=== PATIENT | female | born 1990 | race Caucasian/White ===

== ENCOUNTER 2020-03-02 15:07 | Emergency (ER) | payer OTHER, SELFPAY ==
--- NOTE | ~2020-03-02 | XR_ITS ---
EXAMINATION: XR chest 2V EXAM DATE: 03/02/2020 15:46 INDICATION: cough fever x 1 week . TECHNIQUE: Frontal and lateral projections of the chest obtained and reviewed. Comparison is made to prior examination from 04/13/2019. FINDINGS: Patchy ill-defined right lower lobe airspace disease, most consistent with acute infectiou s process. Cardiomediastinal silhouette is normal. There is no pneumothorax suspected. There are no p leural effusions. There are no osseous abnormalities identified. IMPRESSION: Scattered ill-defined right lower lobe acute airspace disease. Could be bacterial or maya l pneumonia. Reviewed, dictated and finalized at location B. CRABBER IMPRESSION: Scattered ill-defined right lower lobe acute airspace disease. Coul d be bacterial or viral pneumonia.
[2020-03-02 15:15] VITALS: BP 115/70; PULSE 101; RESP 16; TEMP 38.7; O2SAT 96
--- NOTE | 2020-03-02 15:47 | ED.URI ---
HPI - URI/Sore Throat General Chief Complaint: Upper Respiratory Infection Stated Complaint: Cough Time Seen by Provider: 03/02/20 15:47 Source: patient and RN notes reviewed Mode of arrival: ambulatory Limitations: no limitations History of Present Illness HPI Narrative: 29 year old female who presents to [facility] care with complaints of cough,productive cough of yellow to green sputum, fevers, chills and sweats, some shortness of breath with activity for the past 3-4 days.She reports that 1 week ago she started with sinus congestion,clear nasal drainage and post nasal drainage. Patient states that she has had fever up to 103F with some shortness of breath and wheezing over the past 3 days She also reports some chest and back discomfort. Patient reports that she has had pneumonia several times in the past and she report tobacco abuse of 1/2 ppd of cigarettes for the past 10 years.Patient has even and nonlabored respirations with no accessory muscle use or tachypnea. MD elicited complaint: cough, nasal congestion and other (shortness of breath, ) Pertinent past history: pneumonia Onset (ago): week(s) Consistency: constant Severity: similar to previous episodes Description of mucous: yellow and green Able to tolerate fluids by mouth: Yes Exacerbating factors: exertion and deep breaths Associated symptoms: fever, rhinorrhea, nasal congestion, cough, shortness of breath and other Treatments prior to arrival: other (took some left over clindamycin antibiotic) Related Data Allergies Allergy/AdvReac Type Severity Reaction Status Date / Time No Known Allergies Allergy Verified 03/02/20 15:28 Review of Systems Review of Systems: Narrative: CONSTITUTIONAL:Positive for fever, chills, or sweats. EYES: Denies visual changes, redness, or discharge. ENT: Positive rhinorrhea, congestion, no sore throat, or otalgia. CARDIOVASCULAR: Denies chest pain, palpitations, or edema. RESPIRATORY: Positive cough, wheezing or dyspnea. GASTROINTESTINAL: Denies abdominal pain, nausea, vomiting, or diarrhea. GENITOURINARY: Denies dysuria or hematuria. SKIN: Denies rash or itching. MUSCULOSKELETAL: Reports back pain, no joint pain, or myalgia. NEUROLOGIC: Denies headache, numbness, or weakness. PSYCHIATRIC: Denies anxiety or depression. All systems reviewed & are unremarkable except as noted in HPI and below [facility] Past Medical History Medical History (Updated 03/05/20 @ 12:52 by Nina Che NP) Cough in adult Pneumonia Surgical History Surgical History (Updated 03/02/20 @ 16:02 by Nina Che NP) [place] teeth extracted Social History Social History (Updated 03/02/20 @ 16:02 by Nina Che NP) Smoking packs per day: 0.5 Smoking cigarettes per day: 10.0 Smoking status: Current every day smoker Alcohol intake: never Substance use: never Living arrangements: with family Gender identity (if verbalized by the patient): Female Comments At time of signature, agree with nursing past medical, surgical, social history. There is no relevant family history pertinent to the presenting complaint Exam Narrative: Exam Narrative: GENERAL: frail-appearing, well-nourished, and in no acute distress. HEAD: Normocephalic, atraumatic. EYES: PERRLA and EOMI. ENT: Nares red, clear rhinorrhea no epistaxis. Mucous membranes moist TM's normal with adequate light reflex, throat pink with no redness exudates or tonsil swelling noted. NECK: Supple.no lymphadenopathy CHEST: Rhonchi right lower lung quiñonez on auscultation. No respiratory distress.cough SAO2 96% on room air, reports some dyspnea with activity HEART: Regular rate and rhythm. No murmur heard. Normal peripheral pulses. ABDOMEN: Soft, nontender, nondistended, normal active bowel sounds. EXTREMITIES: Normal range of motion. No edema. SKIN: Warm, dry, no rash. NEURO: No focal deficits. Alert and oriented x3. Course Vital Signs Vital signs: Vital Signs Temperature 38.7 C H 11/0
== END 2020-03-02 16:10 | disposition home or self-care (01) ==
PROVIDERS: Emergency Provider Registered Nurse
DX: J18.1 Lobar pneumonia, unspecified organism (principal); Z20.828 Contact with and (suspected) exposure to other viral communicable diseases; F17.210 Nicotine dependence, cigarettes, uncomplicated
CPT/HCPCS: 71046; 99213; G0463

== ENCOUNTER 2021-04-10 09:53 | Emergency (ER) | payer OTHER, SELFPAY ==
--- NOTE | ~2021-04-10 | XR_ITS ---
EXAMINATION: XR chest 2V DATE: 04/10/2021 10:53 INDICATION: Cough and shortness of breath TECHNIQUE: PA and lateral views of the chest are obtained. COMPARISON: 03/29/2020 FINDINGS: The lungs are free of acute opacities. There is no pleural effusion or pneumothorax. The ca rdiomediastinal silhouette is normal. The visualized bones and soft tissues are unremarkable. IMPRESSION: 1. No acute cardiopulmonary abnormality. Reviewed, dictated and finalized at location A. SERVICE DELIVERY MANAGER
[2021-04-10 10:00] VITALS: BP 106/67; PULSE 90; RESP 18; TEMP 36.8; O2SAT 100
--- NOTE | 2021-04-10 10:49 | ED.URI ---
HPI - URI/Sore Throat General Chief Complaint: Upper Respiratory Infection Stated Complaint: cough rib pain headache Time Seen by Provider: 04/10/21 10:36 Source: patient and RN notes reviewed Mode of arrival: ambulatory Limitations: no limitations History of Present Illness HPI Narrative: Patient presents today with a 2-week history of productive cough, nasal congestion postnasal drip, headache, sore throat, body aches, fatigue. Recently she has developed rib pain and shortness of breath. At onset of symptoms she was taking some Claritin-D and Excedrin, but she has not taken anything for her symptoms over the past week. Denies history of asthma or COPD. She has been vaccinated against COVID-19, but not influenza this season. She smokes 1 pack/day. History of pneumonia. She has received the pneumonia vaccine. MD elicited complaint: cough Related Data Allergies Allergy/AdvReac Type Severity Reaction Status Date / Time No Known Allergies Allergy Verified 03/02/20 15:28 Review of Systems Review of Systems: CONSTITUTIONAL: Denies fever, chills, or sweats.+ Body aches, fatigue EYES: Denies visual changes, redness, or discharge. ENT: Denies rhinorrhea, or otalgia.+ Congestion, postnasal drip, sore throat CARDIOVASCULAR: Denies chest pain, palpitations, or edema. RESPIRATORY: + Cough, shortness of breath, rib pain GASTROINTESTINAL: Denies abdominal pain, nausea, vomiting, or diarrhea. GENITOURINARY: Denies dysuria or hematuria. SKIN: Denies rash, itching, or wounds. MUSCULOSKELETAL: Denies back pain, joint pain, or myalgia. NEUROLOGIC: Denies numbness, tingling, or weakness.+ Headache PSYCH: Denies depression or anxiety. [facility] Past Medical History Medical History Cough in adult Pneumonia Surgical History Surgical History [place] teeth extracted Social History Social History Smoking packs per day: 0.5 Smoking cigarettes per day: 10.0 Smoking status: Current every day smoker Alcohol intake: never Substance use: never Gender identity (if verbalized by the patient): Female Comments At time of signature, I have reviewed and agree with nursing past medical, surgical, social and family history unless otherwise noted. Please see nursing chart for further information. There is no relevant family history pertinent to the presenting complaint Exam Narrative: GENERAL: Mildly ill-appearing, well-nourished, and in no acute distress. HEAD: Normocephalic, atraumatic. EYES: EOMI. No redness or drainage. Conjunctivae normal. ENT: Mucous membranes pink and moist. Nares clear. No rhinorrhea. TMs normal bilaterally. Throat normal. Uvula midline. NECK: Normal AROM. Supple. No lymphadenopathy. CHEST: No respiratory distress. Crackles in the bilateral lower lobes. HEART: Regular rate and rhythm. No murmur appreciated. Normal peripheral pulses. EXTREMITIES: Normal range of motion. No edema. SKIN: Warm, dry, no rash. Capillary refill normal. Normal skin turgor. NEURO: No focal deficits. Alert and oriented x3. Gait steady. PSYCH: Normal affect. No signs of depression or anxiety. Course Vital Signs Vital signs: Vital Signs Temperature 98.3 F 04/10/21 10:00 Pulse Rate 90 04/10/21 10:00 Respiratory Rate 18 04/10/21 10:00 Blood Pressure 106/67 04/10/21 10:00 Pulse Oximetry 100 04/10/21 10:00 Temperature 98.3 F 04/10/21 10:00 Pulse Rate 90 04/10/21 10:00 Respiratory Rate 18 04/10/21 10:00 Blood Pressure 106/67 04/10/21 10:00 Pulse Oximetry 100 04/10/21 10:00 Reviewed MDM - URI/Sore Throat Differential Diagnosis Differential diagnosis: Likely upper respiratory infection, sinusitis, viral infection, bronchitis and other (Pneumonia) Imaging Data Radiologist's impression: ITS Impressions [place]
== END 2021-04-10 11:25 | disposition home or self-care (01) ==
PROVIDERS: Emergency Provider Nurse Practitioner
DX: J40 Bronchitis, not specified as acute or chronic (principal); J06.9 Acute upper respiratory infection, unspecified; F17.210 Nicotine dependence, cigarettes, uncomplicated
CPT/HCPCS: 71046; 99213; G0463

== ENCOUNTER 2021-11-16 08:06 | Emergency (ER) | payer OTHER, SELFPAY ==
--- NOTE | ~2021-11-16 | XR_ITS ---
EXAMINATION: XR chest 2V DATE: 11/16/2021 08:28 INDICATION: Cough. TECHNIQUE: Frontal and lateral views of the chest were obtained. COMPARISON: Chest 2 views 04/10/2021 FINDINGS: There is mild scarring at the lung apices. No pleural effusion or pneumothorax. The heart s ize is normal. IMPRESSION: 1. Stable mild scarring at the lung apices. Reviewed, dictated and finalized at location A.
[2021-11-16 08:12] VITALS: BP 102/72; PULSE 91; RESP 16; TEMP 37.6; O2SAT 99
--- NOTE | 2021-11-16 08:32 | ED.URI ---
HPI - URI/Sore Throat General Chief Complaint: Upper Respiratory Infection Stated Complaint: Cough/Headache Time Seen by Provider: 11/16/21 08:32 Source: patient Mode of arrival: ambulatory Limitations: no limitations History of Present Illness HPI Narrative: 31-year-old female presents with complaint of runny nose, nasal congestion, sore throat, fever, cough, headache since yesterday. No shortness of breath or chest pain. Reports pneumonia 9 times. Is here to see if she needs an antibiotic. Does not want any COVID testing done. Denies nausea vomiting diarrhea. No chest pain. All systems reviewed and negative except as noted above. Related Data Home Medications Medication Instructions Recorded Confirmed No Home Medications 11/16/21 11/16/21 Allergies Allergy/AdvReac Type Severity Reaction Status Date / Time No Known Allergies Allergy Verified 11/16/21 08:22 Review of Systems Review of Systems: CONSTITUTIONAL: Reports fever, chills, or sweats. EYES: Denies visual changes, redness, or discharge. ENT: Reports rhinorrhea, congestion, sore throat. Denies otalgia. CARDIOVASCULAR: Denies chest pain, palpitations, or edema. RESPIRATORY: Reports cough. Denies dyspnea. GASTROINTESTINAL: Denies abdominal pain, nausea, vomiting, or diarrhea. GENITOURINARY: Denies dysuria or hematuria. SKIN: Denies rash or itching. MUSCULOSKELETAL: Denies back pain, joint pain, or myalgia. NEUROLOGIC: Denies headache, numbness, or weakness. PSYCHIATRIC: Denies anxiety or depression. All other systems reviewed are negative, except as documented in HPI. [facility] Past Medical History Medical History Cough in adult Pneumonia Surgical History Surgical History [place] teeth extracted Social History Social History Smoking packs per day: 0.5 Smoking cigarettes per day: 10.0 Smoking status: Current every day smoker Alcohol intake: never Substance use: never Gender identity (if verbalized by the patient): Female Comments At time of signature, agree with nursing past medical, surgical, social and family history. There is no relevant family history pertinent to the presenting complaint. Exam Narrative: GENERAL: This is a well-nourished, well-developed patient, in no apparent distress. HEAD: normocephalic, atraumatic. EYES: PERRL. Sclera clear/white. Vision is grossly intact. EARS: External ears normal, auditory canals clear and without drainage, TMs normal without perforation. Hearing grossly intact. NOSE: External nose normal with clear nasal drainage. THROAT: Mucous membranes moist, posterior pharynx clear. NECK: Neck supple, non-tender without lymphadenopathy, masses or thyromegaly. CARDIOVASCULAR: Regular rate and rhythm without murmurs, gallops, or rubs. RESPIRATORY: Clear to auscultation. Breath sounds equal bilaterally. No wheezes, rales, or rhonchi. SKIN: warm, Dry, intact with no suspicious lesions or rash, good texture and turgor. NEURO: awake, alert, and oriented to person, place and time. There were no obvious focal neurologic abnormalities. EXTREMITIES: No joint tenderness, effusion, or edema noted. Course Course Level of Care: Express Care Visit Vital Signs Vital signs: Vital Signs Temperature 37.6 C H 11/16/21 08:12 Pulse Rate 91 11/16/21 08:12 Respiratory Rate 16 11/16/21 08:12 Blood Pressure 102/72 11/16/21 08:12 Pulse Oximetry 99 11/16/21 08:12 Oxygen Delivery Room Air 11/16/21 08:12 Temperature 37.6 C H 11/16/21 08:12 Pulse Rate 91 11/16/21 08:12 Respiratory Rate 16 11/16/21 08:12 Blood Pressure 102/72 11/16/21 08:12 Pulse Oximetry 99 11/16/21 08:12 Oxygen Delivery Room Air 11/16/21 08:12 Reviewed MDM - URI/Sore Throat MDM Narrative Medical decision making narrati
== END 2021-11-16 08:57 | disposition home or self-care (01) ==
PROVIDERS: Emergency Provider Nurse Practitioner Family
DX: J06.9 Acute upper respiratory infection, unspecified (principal); F17.210 Nicotine dependence, cigarettes, uncomplicated
CPT/HCPCS: 71046; 99213; G0463

== ENCOUNTER 2021-12-06 18:33 | Emergency (ER) | payer OTHER, SELFPAY ==
--- NOTE | ~2021-12-06 | XR_ITS ---
EXAMINATION: XR chest 2V Exam Date/Time: 12/06/2021 18:49 CDT HISTORY: PRODUCTIVE COUGH/WHEEZING X 3 DAYS. SMOKER. Comparison: None available. RESULT: Lines, tubes, and devices: None. Lungs and pleura: Irregular subsegmental bibasilar opacities with more generalized reticulonodular d ensities in the right lower lung. Cardiomediastinal silhouette: Stable. Other: No acute osseous or upper abdominal finding. IMPRESSION: Right lower lobe bronchopneumonia versus respiratory bronchiolitis. Reviewed, dictated and finalized at location K.
--- NOTE | 2021-12-06 18:35 | ED.URI ---
HPI - URI/Sore Throat General Chief Complaint: Upper Respiratory Infection Stated Complaint: Chest Pain Time Seen by Provider: 12/06/21 18:35 Source: patient Mode of arrival: ambulatory Limitations: no limitations History of Present Illness HPI Narrative: Ms. Hassan is a 31-year-old female patient presenting to the clinic today with complaints of cough, shortness of breath on exertion, and chest discomfort x 3 days. She also notes some chills and possible fever. History of recurrent pneumonia. Current smoker. Has been having green, yellow, and white phlegm. MD elicited complaint: sore throat and nasal congestion Related Data Allergies Allergy/AdvReac Type Severity Reaction Status Date / Time No Known Allergies Allergy Verified 12/06/21 18:43 Review of Systems Review of Systems: Pertinent positives per HPI. Patient denies any fever, chills, rash, headache, visual changes, dizziness, cough, shortness of breath, chest pain, palpitations, nausea, vomiting, diarrhea, constipation, abdominal pain, or any urinary issues. [facility] Past Medical History Medical History Cough in adult Pneumonia Surgical History Surgical History [place] teeth extracted Social History Social History Smoking packs per day: 0.5 Smoking cigarettes per day: 10.0 Smoking status: Current every day smoker Alcohol intake: never Substance use: never Gender identity (if verbalized by the patient): Female Comments At the time of my signature, I reviewed and agree with the nursing past medical, surgical, social, and family history. There is no relevant family history pertinent to the patient complaint. Exam Narrative: General: Well-developed, well nourished, in no apparent distress Head: Normocephalic, atraumatic Eyes: Pupils equally round and reactive to light bilaterally, EOM intact, sclera and conjunctive clear, no discharge, lids normal Ears: TMs intact and clear, ear canals clear, no drainage, grossly hearing normal. Nose: Nares patent, no discharge, no inflammation, no sinus tenderness. Mouth: Oral pharynx without lesions or masses, good dentition, MMM. Neck: Supple, trachea midline, no enlargement of anterior or posterior cervical nodes, no thyroid masses or goiter palpable. Cardio: Regular rate and rhythm, s1 and s2 normal, no murmur appreciated. Resp: Expiratory wheezing and rhonci throughout posteriorly, rales or rubs Course Course Emergency Course: Portions of this record may have been created with voice recognition software. Level of Care: Express Care Visit Vital Signs Vital signs: Vital Signs Temperature 36.9 C 12/06/21 18:36 Pulse Rate 91 12/06/21 18:36 Respiratory Rate 14 12/06/21 18:36 Blood Pressure 111/74 12/06/21 18:36 Pulse Oximetry 99 12/06/21 18:36 Oxygen Delivery Room Air 12/06/21 18:36 Temperature 36.9 C 12/06/21 18:45 Pulse Rate 91 12/06/21 18:45 Respiratory Rate 14 12/06/21 18:45 Blood Pressure 111/74 12/06/21 18:45 Pulse Oximetry 99 12/06/21 18:45 Oxygen Delivery Room Air 12/06/21 18:45 Vital signs reviewed MDM - URI/Sore Throat MDM Narrative Medical decision making narrative: At the time of visit patient is resting comfortable on the exam table. COVID testing was negative. Chest x-ray was completed and she has right lower lobe pneumonia versus bronchiolitis. I suspect the patient has bronchial pneumonia and will treat with a course of azithromycin, amoxicillin, albuterol inhaler, and some prednisone. Supportive measures were discussed with the patient and she voiced understanding of discharge instructions and agrees to treatment plan. Differential Diagnosis Differential diagnosis: Likely upper respiratory infection, sinusitis, viral infection, bronchitis, influen
[2021-12-06 18:36] VITALS: BP 111/74; PULSE 91; RESP 14; TEMP 36.9; O2SAT 99
[2021-12-06 18:45] VITALS: BP 111/74; PULSE 91; RESP 14; TEMP 36.9; O2SAT 99
== END 2021-12-06 19:15 | disposition home or self-care (01) ==
PROVIDERS: Emergency Provider Nurse Practitioner Family
DX: J18.1 Lobar pneumonia, unspecified organism (principal); Z20.822 Contact with and (suspected) exposure to COVID-19; F17.210 Nicotine dependence, cigarettes, uncomplicated
CPT/HCPCS: 71046; 87426; 99213; C9803; G0463

== ENCOUNTER 2022-12-27 15:48 | Emergency (ER) | payer OTHER, SELFPAY ==
[2022-12-27 15:55] VITALS: BP 107/65; PULSE 92; RESP 20; TEMP 37.9; O2SAT 100
--- NOTE | 2022-12-27 16:09 | ED.URI ---
HPI - URI/Sore Throat General Chief Complaint: Upper Respiratory Infection Stated Complaint: aches/fatigue/cough Time Seen by Provider: 12/27/22 16:10 Source: patient Mode of arrival: ambulatory Limitations: no limitations History of Present Illness HPI Narrative: 32-year-old female presents with complaint of cough for 1 month. Today she developed a low-grade fever pain to left mid back. Is concerned for pneumonia. Reports that she has had pneumonia proximally times. Patient is a current every day smoker. Not taking any [id number] medications to treat her symptoms. Denies shortness of breath at rest. All systems reviewed and negative except as noted above. Related Data Allergies Allergy/AdvReac Type Severity Reaction Status Date / Time No Known Allergies Allergy Verified 12/27/22 16:10 Review of Systems Review of Systems: CONSTITUTIONAL: Reports fever, fatigue. Denies chills, or sweats. EYES: Denies visual changes, redness, or discharge. ENT: Denies rhinorrhea, congestion, sore throat, or otalgia. CARDIOVASCULAR: Denies chest pain, palpitations, or edema. RESPIRATORY: Reports cough chest congestion and dyspnea with exertion. GASTROINTESTINAL: Denies abdominal pain, nausea, vomiting, or diarrhea. GENITOURINARY: Denies dysuria or hematuria. SKIN: Denies rash or itching. MUSCULOSKELETAL: Denies back pain, joint pain, or myalgia. NEUROLOGIC: Denies headache, numbness, or weakness. PSYCHIATRIC: Denies anxiety or depression. All other systems reviewed are negative, except as documented in HPI. [facility] Past Medical History Medical History Cough in adult Pneumonia Surgical History Surgical History [place] teeth extracted Social History Social History Smoking packs per day: 0.5 Smoking cigarettes per day: 10.0 Smoking status: Current every day smoker Alcohol intake: never Substance use: never Living arrangements: with family Gender identity (if verbalized by the patient): Female Comments At time of signature, agree with nursing past medical, surgical, social and family history. There is no relevant family history pertinent to the presenting complaint. Exam Narrative: GENERAL: This is a well-nourished, well-developed patient, in no apparent distress. HEAD: normocephalic, atraumatic. EYES: PERRL. Sclera clear/white. Vision is grossly intact. EARS: External ears normal, auditory canals clear and without drainage, TMs normal without perforation. Hearing grossly intact. NOSE: External nose normal with no obvious nasal discharge, nares without redness, no rhinorrhea. THROAT: Mucous membranes moist, posterior pharynx clear. NECK: Neck supple, non-tender without lymphadenopathy, masses or thyromegaly. CARDIOVASCULAR: Regular rate and rhythm without murmurs, gallops, or rubs. RESPIRATORY: Rhonchi throughout all lung quiñonez. No wheezes, rales. SKIN: warm, Dry, intact with no suspicious lesions or rash, good texture and turgor. NEURO: awake, alert, and oriented to person, place and time. There were no obvious focal neurologic abnormalities. EXTREMITIES: No joint tenderness, effusion, or edema noted. Course Course Level of Care: Express Care Visit Vital Signs Vital signs: Vital Signs Temperature 37.9 C H 12/27/22 15:55 Pulse Rate 92 12/27/22 15:55 Respiratory Rate 20 12/27/22 15:55 Blood Pressure 107/65 12/27/22 15:55 Pulse Oximetry 100 12/27/22 15:55 Oxygen Delivery Room Air 12/27/22 15:55 Temperature 37.9 C H 12/27/22 15:55 Pulse Rate 92 12/27/22 15:55 Respiratory Rate 20 12/27/22 15:55 Blood Pressure 107/65 12/27/22 15:55 Pulse Oximetry 100 12/27/22 15:55 Oxygen Delivery Room Air 12/27/22 15:55 Reviewed MDM - URI/Sore Throat MDM Narrative Medical decisio
== END 2022-12-27 16:18 | disposition home or self-care (01) ==
PROVIDERS: Emergency Provider Nurse Practitioner Family
DX: R05.1 Acute cough (principal); F17.210 Nicotine dependence, cigarettes, uncomplicated
CPT/HCPCS: 99213; G0463

== ENCOUNTER 2023-02-27 17:21 | Emergency (ER) | payer OTHER, SELFPAY ==
--- NOTE | ~2023-02-27 | XR_ITS ---
EXAMINATION: XR chest 2V 02/27/2023 18:01 INDICATION: Chest discomfort PROCEDURE: 2 view chest COMPARISON: Comparison to multiple prior studies sequentially, with oldest reviewed study dated 03/30. FINDINGS: The lungs are clear. The cardiomediastinal silhouette is within normal limits. There are no pleural effusions. There is no pneumothorax suspected. IMPRESSION: 1: NO ACUTE CARDIOPULMONARY DISEASE. Reviewed, dictated and finalized at location A.
[2023-02-27 17:26] VITALS: BP 121/65; PULSE 101; RESP 20; TEMP 38.6; O2SAT 100
--- NOTE | 2023-02-27 17:45 | ED.URI ---
HPI - URI/Sore Throat General Chief Complaint: Upper Respiratory Infection Stated Complaint: chest pain,throwing up,diarrhea,cough Source: patient and RN notes reviewed History of Present Illness HPI Narrative: 32 yo F presents to urgent care with multiple medical complaints. Pt states she has an intermittent BEAULIEU and vomited x1 this morning and 1x yesterday. Pt has had diarrhea today. Complains of lower abdominal cramping that she contributes to her possible near menses. Pt states she thinks she has PNA b/c of the lower chest pain that she has and SOB but also states the lower chest pain started when she was vomiting. Denies any known fevers at home. Denies any dysuria. Related Data Home Medications Medication Instructions Recorded Confirmed albuterol sulfate 90 mcg/actuation inhalation 02/27/23 aerosol inhaler Allergies Allergy/AdvReac Type Severity Reaction Status Date / Time No Known Allergies Allergy Verified 12/27/22 16:10 Review of Systems Review of Systems: Pertinent positives and pertinent negatives per HPI. [facility] Past Medical History Medical History Cough in adult Pneumonia Surgical History Surgical History [place] teeth extracted Social History Social History Smoking packs per day: 0.5 Smoking cigarettes per day: 10.0 Smoking status: Current every day smoker Alcohol intake: never Substance use: never Living arrangements: with family Gender identity (if verbalized by the patient): Female Comments At the time of my signature, I reviewed and agree with the nursing past medical, surgical, social, and family history. There is no relevant family history pertinent to the patient complaint. Exam Narrative: GENERAL: This is a well-nourished, well-developed patient, in no apparent distress. HEAD: normocephalic, atraumatic. EYES: Sclera clear/white. Vision is grossly intact. EARS: External ears normal, auditory canals clear and without drainage, TMs normal without perforation. Hearing grossly intact. NOSE: External nose normal with no obvious nasal discharge, nares without redness, no rhinorrhea. THROAT: Mucous membranes moist, posterior pharynx clear. NECK: Neck supple, non-tender without lymphadenopathy, masses or thyromegaly. CARDIOVASCULAR: Regular rate and rhythm without murmurs, gallops, or rubs. RESPIRATORY: Clear to auscultation. Breath sounds equal bilaterally. No wheezes, rales, or rhonchi. GASTROINTESTINAL: Abdomen soft, non-tender, nondistended. Bowel sounds are active. No hepato-splenomegaly, or palpable masses. No guarding. SKIN: warm, intact with no suspicious lesions or rash, good texture and turgor. NEURO: awake, alert, and oriented to person, place and time. There were no obvious focal neurologic abnormalities. EXTREMITIES: No clubbing, cyanosis, or edema. No joint tenderness, effusion, or edema noted. BACK: Nontender without deformity or crepitus. No flank tenderness. Course Course Level of Care: Express Care Visit Vital Signs Vital signs: Vital Signs Temperature 101.5 F H 02/27/23 17:26 Pulse Rate 101 H 02/27/23 17:26 Respiratory Rate 20 02/27/23 17:26 Blood Pressure 121/65 02/27/23 17:26 Pulse Oximetry 100 02/27/23 17:26 Oxygen Delivery Room Air 02/27/23 17:26 Temperature 101.5 F H 02/27/23 17:26 Pulse Rate 101 H 02/27/23 17:26 Respiratory Rate 20 02/27/23 17:26 Blood Pressure 121/65 02/27/23 17:26 Pulse Oximetry 100 02/27/23 17:26 Oxygen Delivery Room Air 02/27/23 17:26 Reviewed MDM - URI/Sore Throat MDM Narrative Medical decision making narrative: Viral illness may last between 7-21 days; antibiotics do not cure viral illness and are NOT recommended at this time. Also, recommend symptomatic treatment includes: rest, fluids,
== END 2023-02-27 18:24 | disposition home or self-care (01) ==
PROVIDERS: Emergency Provider Nurse Practitioner Family
DX: B34.9 Viral infection, unspecified (principal); F17.210 Nicotine dependence, cigarettes, uncomplicated
CPT/HCPCS: 71046; 99213; G0463

== ENCOUNTER 2024-05-09 10:29 | Emergency (ER) | payer OTHER, SELFPAY ==
--- NOTE | ~2024-05-09 | XR_ITS ---
CHEST RADIOGRAPH, PA AND LATERAL CLINICAL HISTORY: cough x1 wk, HX PNEUMONIA . COMPARISON: 02/27/2023 TECHNIQUE: PA and lateral views of the chest. FINDINGS The cardiomediastinal silhouette is unremarkable. The lungs are clear. Visualized osseous structures and soft tissues are unremarkable. IMPRESSION: No focal infiltrate or effusion. If clinical suspicion persists, cross-sectional imaging (noncontrast enhanced CT examination of the c hest) is suggested for further evaluation. Reviewed, dictated and finalized at location A. [facility] IMPRESSION: No focal infiltrate or effusion. If clinical suspicion persists, cross-sectional imaging (noncontrast enhanced C T examination of the chest) is suggested for further evaluation.
[2024-05-09 10:34] VITALS: BP 118/81; PULSE 92; RESP 16; TEMP 37.1; O2SAT 100
--- NOTE | 2024-05-09 10:55 | ED.URI ---
HPI - URI/Sore Throat General Chief Complaint: Upper Respiratory Infection Stated Complaint: Rib Pain/Back Pain/Cough Time Seen by Provider: 05/09/24 10:38 Source: patient and RN notes reviewed Mode of arrival: ambulatory Limitations: no limitations History of Present Illness HPI Narrative: Patient presents today complaining of a one-week history productive cough, chest congestion, headache, nasal congestion, rhinorrhea, occasional low fever with occasional shortness of breath. She also reports some right posterior rib pain since yesterday. She has been taking some Excedrin for headache with some mild relief. History of pneumonia. Smokes 1 pack per day. Related Data Home Medications ?Medication ?Instructions ?Recorded ?Confirmed ?Last Taken ?Type albuterol sulfate 90 mcg/actuation inhalation 02/27/23 Unknown History aerosol inhaler Allergies Allergy/AdvReac Type Severity Reaction Status Date / Time No Known Allergies Allergy Verified 05/09/24 10:38 Review of Systems Review of Systems: CONSTITUTIONAL: Denies body aches, chills, or sweats.+ fever EYES: Denies visual changes, redness, or discharge. ENT: Denies sore throat, or otalgia.+ congestion, rhinorrhea CARDIOVASCULAR: Denies chest pain, palpitations, or edema. RESPIRATORY: + cough, chest congestion, occasional shortness of breath, rib pain GASTROINTESTINAL: Denies abdominal pain, nausea, vomiting, or diarrhea. GENITOURINARY: Denies dysuria or hematuria. SKIN: Denies rash, itching, or wounds. MUSCULOSKELETAL: Denies back pain, joint pain, or myalgia. NEUROLOGIC: Denies numbness, tingling, or weakness.+ headache PSYCH: Denies depression or anxiety. PMF Past Medical History Medical History (Reviewed 05/09/24 @ 10:56 by Catherine Trent, [facility], ) Cough in adult Pneumonia Surgical History Surgical History (Reviewed 05/09/24 @ 10:56 by Catherine Trent, [facility], ) [place] teeth extracted Social History Social History (Updated 05/09/24 @ 10:56 by Catherine Trent, [facility], ) Smoking packs per day: 1 Smoking cigarettes per day: 20.0 Smoking status: Current every day smoker Alcohol intake: never Substance use: never Living arrangements: with family Gender identity (if verbalized by the patient): Female Comments At time of signature, I have reviewed and agree with nursing past medical, surgical, social and family history unless otherwise noted. Please see nursing chart for further information. There is no relevant family history pertinent to the presenting complaint Exam Narrative: GENERAL: Mildly ill-appearing, well-nourished, and in no acute distress. HEAD: Normocephalic, atraumatic. EYES: EOMI. No redness or drainage. Conjunctivae normal. ENT: Mucous membranes pink and moist. Nares congested. No rhinorrhea. TMs normal bilaterally. Throat normal. Uvula midline. NECK: Normal AROM. Supple. No lymphadenopathy. CHEST: No respiratory distress. Inspiratory and expiratory wheezing throughout. Rhonchi in the right lower lobe. HEART: Regular rate and rhythm. No murmur appreciated. EXTREMITIES: Normal range of motion. No edema. SKIN: Warm, dry, no rash. Capillary refill normal. Normal skin turgor. NEURO: No focal deficits. Alert and oriented x3. Gait steady. PSYCH: Normal affect. No signs of depression or anxiety. Course Course Level of Care: Express Care Visit Vital Signs Vital signs: Vital Signs Temperature 98.7 F 05/09/24 10:34 Pulse Rate 92 05/09/24 10:34 Respiratory Rate 16 05/09/24 10:34 Blood Pressure 118/81 05/09/24 10:34 Pulse Oximetry 100 05/09/24 10:34 Oxygen Delivery Room Air 05/09/24 10:34 Temperature 98.7 F 05/09/24 10:34 Pulse Rate 92 05/09/24 10:34 Respiratory Rate 16 05/09/24 10:34 Blood Pressure 118/81 05/09/24 10:34 Pulse Oximetry 100 05/09/24 10:34 Oxygen Delivery Room Air 05/09/24 10:34 Reviewed MDM - URI/Sore Throat MDM Narrative Medical decision making narrative: Chest x-ray negative. Patient will be treated for bronchitis with prednisone and an albuterol inhaler. She declines antitussive. Symptoms likely viral in etiology. Discussed [id number] medication use and duration of illness. Anticipatory guidance given. Differential Diagnosis Differential diagnosis: Likely upper respiratory infection, viral infection, bronchitis and other (Pneumonia) Imaging Data Radiologist's impression: ITS Impressions Chest X-Ray 05/09/24 10:45 IMPRESSION: No focal infiltrate or effusion. If clinical suspicion persists, cross-sectional imaging (noncontrast enhanced CT examination of the chest) is suggested for further evaluation. Critical Care Time Critical Care Time Critical Care Time: No Discharge Plan Discharge Clinical Impression: Bronchitis Upper respiratory infection Qualifiers: URI type: unspecified URI Qualified Code(s): J06.9 - Acute upper respiratory infection, unspecified Patient Disposition: Home, Self-Care Condition: Stable Instructions: Acute Bronchitis (ED) Additional Instructions: Your chest x-ray is negative for pneumonia. Please start the prednisone and the albuterol inhaler as directed. Start Mucinex to help break up chest congestion. Taking anti-inflammatories such as Aleve or ibuprofen for your rib discomfort. Follow-up with your PCP next week if symptoms are not improving. Your blood pressure was elevated above 120/80 today at Urgent Care. This puts you above the threshold for follow up. Please schedule a followup visit with your personal physician as soon as possible, for further evaluation and treatment. Even blood pressure exceeding 120/80 may indicate pre-hypertension. Patient Language: Greenlandic Prescriptions: New prednisone 50 mg tablet 50 mg PO DAILY 5 Days Qty: 5 0RF albuterol sulfate 90 mcg/actuation HFA aerosol inhaler 2 inh inhalation Q4-6H PRN (Reason: shortness of breath or wheezing) Qty: 8.5 0RF No Action albuterol sulfate 90 mcg/actuation HFA aerosol inhaler INHALATION (DME) Aerochamber Plus Z Stat Spacer See Rx Instructions .Route Qty: 1 0RF Rx Instructions: As directed Follow-up/Referrals: PHYSICIAN,TRAINING REPRESENTATIVE [Primary Care Provider] - Time of Disposition: 11:00
== END 2024-05-09 11:03 | disposition home or self-care (01) ==
PROVIDERS: Emergency Provider Nurse Practitioner
DX: J40 Bronchitis, not specified as acute or chronic (principal); J06.9 Acute upper respiratory infection, unspecified; F17.210 Nicotine dependence, cigarettes, uncomplicated
CPT/HCPCS: 71046; 99213; G0463

== ENCOUNTER 2024-07-07 09:10 | Emergency (ER) | payer OTHER, SELFPAY ==
[2024-07-07 09:34] VITALS: BP 116/78; PULSE 96; RESP 16; TEMP 36.9; O2SAT 100
--- OUTSIDE RECORDS SUMMARY | 2024-07-07 10:10 | XMS_ITS | Clinical Summary ---
Author Organization [facility] Address [address] [place] [address] Phone Care Team Providers Care Medical Staff Coordinator Name Role Phone Provider, None Primary Care Provider Unavailabl e Allergies No known active allergies Medications albuterol 108 (90 Base) MCG/ACT Aerosol Solution take 2 Puffs by inhalation every 6 hours as needed for Cough. 1 Inhaler 9 Active Social History Tobacco Use Types Packs/Day Years Used Date Smoking Tobacco: Every Day Cigarettes Smokeless Tobacco: Never Alcohol Use Standard Drinks/Week Comments Not Currently 0 (1 standard drink = 0.6 oz pur e alcohol) Comments No Sex and Gender Information Value Date Recorded Sex Assigned at Not on file Legal Sex Female 8:42 PM CDT Gender Identity Not on file Sexual Orientation Not on file Last Filed Vital Signs Vital Sign Reading Time Taken Comments Blood Pressure 99/59 08/07/2021 2:03 PM CDT Pulse 92 08/07/2021 2:03 PM CDT Temperature 38.8 C (101.9 F) 08/07/2021 11:53 AM CDT Respiratory Rate 16 08/07/2021 11:53 AM CDT Oxygen Saturation 94% 08/07/2021 2:03 PM CDT Inhaled Oxygen Concentration - - Weight 47.6 kg (105 lb) 08/07/2021 11:53 AM CDT Height 160 cm (5' 3 ) 08/07/2021 11:53 AM CDT Body Mass Index 18.6 08/07/2021 11:53 AM CDT Plan of Treatment Health Maintenance Due Date Last Done Comments Hepatitis C Virus (HCV) Screening 1992 TdaP Immunization 1992 Hepatitis B Immunization (1 of 3 - 19+ 3-dose series) 2011 Pap Smear 2013 Cervical Cancer Screening (CCS) 2022 HPV/Cotest 2022 Influenza Immunization (#1) 2023 SARS-COV-2 Immunization (1 - 2023-25 season) 2023 Respiratory Syncytial Virus (RSV) Immunization (Adult) (1 - 1-dose 75+ series) 2067 Pneumococcal Immunization Combined Aged Out 2019 No longer eligible based on patient's age to complete this topic Meningococcal Immunization (ACWY) Aged Out No longer eligible based on patient's age to complete this topic Rotavirus Immunization Aged Out No lo nger eligible based on patient's age to complete this topic Insurance [facility] Care Teams Medical Staff Coordinator Relationship Specialty Start Date End Date Provider, None [place] PCP - General 09/16/18
--- OUTSIDE RECORDS SUMMARY | 2024-07-07 10:10 | XMS_ITS | Encounter Summary ---
Author Organization [facility] Healthcare Address [address] [place] [address] Care Team Providers Care Preventive Maintenance Coordinator Name Role Phone Steve Plascencia MD Primary Care Provider [phone] Encounter Details Date Type Department Care Team (Late st Contact Info) Description 09/20/2022 Documentation [facility] Information Management [address] [place] [id number] Shanon Cornell RN Social History Tobacco Use Types Packs/Day Years Used Date Smoking Tobacco: Every Day Cigarettes 0.5 10 Smokeless Tobacco: Never Comments:1 PPD Alcohol Use Standard Drinks/Week Comments Not Currently 0 (1 standard drink = 0.6 oz pur e alcohol) Humiliation, Afraid, Rape, and Kick questionnair e Answer Date Recorded Within the last year, have y ou been afraid of your partner or ex-partner? No 01/17/2022 Within the last year, have y ou been humiliated or emotionally abused in other ways by your partner or ex-partner? No Within the last year, have y ou been kicked, hit, slapped, or otherwise physically hurt by your partner or ex-partner? No 01/17/2022 Within the last year, have y ou been raped or forced to have any kind of sexual activity by your partner or ex-partner? No 01/17/2022 Social Connection and Isolat ion Panel [NHANES] Answer Date Recorded In a typical week, how many times do you talk on the phone with family, friends, or neighbors? More than three times a week 08/09/2022 How often do you get togethe r with friends or relatives? More than three times a week 08/09/2022 How often do you attend chur ch or christianity services? Never 08/09/2022 Do you belong to any clubs o r organizations such as mandaen groups, unions, fraternal or athletic groups, or school groups? No 08/09/2022 How often do you attend meet ings of the clubs or organizations you belong to? Never 08/09/2022 Are you , , di vorced, , never , or living with a partner? 08/09/2022 AUDIT-C Answer Date Recorded Q1: How often do you have a drink containing alcohol? Never 08/09/2022 Q2: How many drinks containi ng alcohol do you have on a typical day when you are drinking? Patient does not drink Q3: How often do you have si x or more drinks on one occasion? Never 08/09/2022 Overall Financial Resource Strain (CARDIA) Answe r Date Recorded How hard is it for you to pa y for the very basics like food, housing, medical care, and heating? Not hard at all 08/09/2022 PHQ-2 Answer Date Recorded PHQ-2 Total Score (If total score is 3 or more points, staff should administer the PHQ-9) 0 08/09/2022 [facility] - Occupational Stress Questionnaire Answer Date Recorded Do you feel stress - tense, restless, nervous, or anxious, or unable to sleep at night because your mind is troubled all the time - these days? Not at all 08/09/2022 Exercise Vital Sign Answer Date Recorde d On average, how many days pe r week do you engage in moderate to strenuous exercise (like a brisk walk)? 3 days 08/09/2022 On average, how many minutes do you engage in exercise at this level? 30 min 08/09/2022 Hunger Vital Sign Answer Date Recorded Within the past 12 months, y ou worried that your food would run out before you got the money to buy more. Never true 08/10/19 23 Within the past 12 months, t he food you bought just didn't last and you didn't have money to get more. Never true 08/09/2022 PRAPARE - Transportation Answer Date Re corded In the past 12 months, has l ack of transportation kept you from medical appointments or from getting medications? No 07/29 In the past 12 months, has l ack of transportation kept you from meetings, work, or from getting things needed for daily living? No 08/09/2022 Housing Stability Vital Sign Answer Bharat e Recorded In the last 12 months, was t here a time when you were not able to pay the mortgage or rent on time? No 08/09/2022 In the last 12 months, how many places have you lived? 1 08/09/2022 In the last 12 months, was t here a time when you did not have a steady place to sleep or slept in a senior care (including now)? No 08/09/2022 [place] Depression Scale Answer Date Recorded [place] Depression Scale Total 8 05/30/2022 The thought of harming myself has occurred to me . Never 05/30/2022 Personal Safety Answer Date Recorded Have you ever been in or are you currently in a harmful physical or emotional relationship or is someone making you feel afraid or unsafe? 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
--- OUTSIDE RECORDS SUMMARY | 2024-07-07 10:10 | XMS_ITS | Clinical Summary ---
Author Organization [facility] [facility] lt Address [address] [place] [address] Care Team Providers Care Sr. Vendor Management Associate Name Role Phone Steve Plascencia MD Primary Care Provider [phone] Allergies No known active allergies Medications ibuprofen (ADVIL,MOTRIN) 600 mg tabletIndication s:Cramps Take 1 tablet (600 mg total) by mouth every 6 (six) hours as needed for pain 20 tablet 08/10/2022 Active Active Problems Problem Noted Date Diagnosed Date 38 weeks gestation of 08/09/2022 -induced glucose intolerance 06/16/2022 Overview (06/16/2022): 06/16/22- GTT= 90, 142, 102, 102 Normal , incidental 01/17/2022 Marijuana smoker 01/17/2022 Assessment & Plan (01/17/2022 4:06 PM CDT): The patient was instructed to stop smoking marijuana as it is bad for the baby's brain development. Moderate tobacco use disorder 03/24/2020 Assessment & Plan (01/17/2022 4:02 PM CDT): The patient was encouraged to stop smoking. Techniques for smoking cessation were discussed to the patient's level of interest. Assessment & Plan (03/24/2020 3:04 PM CEMENT CRUSHER OPERATOR): Not well controlled, patient is not ready to quit yet Discussed with patient various strategies for quitting as well as medical options Patient is not interested in starting any therapy today, will continue to address at future date Smoking likely contributes to recurrent pneumonia Body mass index (BMI) less than 19 03/24/2020 Assessment & Plan (03/24/2020 3:04 PM CEMENT CRUSHER OPERATOR): Stable, no weight loss, no concern for eating disorder Resolved Problems Problem Noted Date Diagnosed Date Resolved Date H/O recurrent pneumonia 03/24/202007/29 Assessment & Plan (03/24/2020 3:04 PM CEMENT CRUSHER OPERATOR): Patient reports 6 episodes of pneumonia in past 2 years, confirmed by x-ray and treatment antibiotics Will give pneumonia vaccine today, continue to evaluate Request records from outside sources, patient has had recent CT of chest as well as multiple chest x-rays Will also check routine labs including CBC for possible immune deficiency Given history of smoking, may have mild COPD increased risk of infection due to tobacco use disorder Immunizations Immunization Administration Dates Next Due Influenza, Unspecified 03/24/2020(Deferr ed: Patient Refused),04/30/2019(Deferred: Patient Refused),04/30/2018(Deferred: Patient Refused) Pneumococcal Polysaccharide PPV23 03/24/2020 Surgical History Surgery Date Site/Laterality Comments OTHER SURGICAL HISTORY No pertinent surgical hx NO PAST SURGERIES Medical History Medical History Date Comments No pertinent past medical history Pneumonia H/O recurrent pneumonia 03/24/2020 Family History Medical History Relation Name Comments Cancer Father's Sister Throat cancer Maternal Grandfather Emphysema Maternal Grandmother had can cer also Testicular cancer Mother's Brother Colon cancer Neg Hx no colon, breas t or 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 Never 08/09/2022 Do you belong to [...] staff should administer the PHQ-9) 0 08/09/2022 [facility] - Occupational Stress [...] place to sleep or slept in a residential (including now)? No 08/09/2022 [place] Depression Scale Answer Date Recorded [place] Depression Scale Total 8 05/30/2022 The thought of harming myself has occurred to me . Never 05/30/2022 Personal Safety Answer Date Recorded Getting School Help Needed Not on file 08/09 Comments No Sex and Gender Information Value Date Recorded Sex Assigned at Not on file Legal Sex Female 2:29 PM CEMENT CRUSHER OPERATOR Gender Identity Not on file Sexual Orientation Not on file Obstetrics History Para Term AB IAB SAB Ectopic Multiple Livin g Live Births 2 2 2 0 2 2 Date Outcome GA Total Labor Labor/2nd/3rd Weight Sex Type Anes PTL Mahi A1 A5 Name Clin 2017 Term 39w 0d 3.147 kg (6 lb 15 oz) F Vag-S pont None Livin g Complications:None 2022 Term 38w 1d 3h 08m 2h 16m/0h 48m/0h 04m 3.157 kg (6 lb 15.4 oz) M Vag-S pont Epidur al N Livin g 9 9 JACKELYN ODONNELLJasper MARTINEZ Humberto Hunt MD Complications:None Delivery Location:[facility] ([facility]) Last Filed Vital Signs Vital Sign Reading Time Taken Comments Blood Pressure 121/81 08/10/2022 3:00 PM CDT Pulse 80 08/10/2022 3:00 PM CDT Temperature 36.6 C (97.9 F) 08/10/2022 3:00 PM CDT Respiratory Rate 16 08/10/2022 3:00 PM CDT Oxygen Saturation 97% 08/09/2022 4:05 PM CDT Inhaled Oxygen Concentration - - Weight 68.9 kg (152 lb) 08/09/2022 5:30 AM CDT Height 165.1 cm (5' 5 ) 08/09/2022 5:30 AM CDT Body Mass Index 25.29 08/09/2022 5:30 AM CDT Plan of Treatment Health Maintenance Due Date Last Done Comments DTaP/Tdap/Td Vaccine (1 - Tdap) 2003 Varicella Vaccines (1 of 2 - 13+ 2-dose series) 2005 Hepatitis B Screening 2010 Regular Well Visit/Exam 18-64 2010 Pneumococcal vaccine <65 (2 of 2 - PCV) 03/24/2021 03/24/2020 Cervical Cancer Screening 01/17/2023 01/17/2022 Depression Screening 08/10/2023 08/09/2022, 08/09/2022, 03/24/2020 Hepatitis C Screening Completed 02/10/2022 HPV Vaccines Aged Out No longer eligi ble based on patient's age to complete this topic Influenza Vaccine Discontinued Procedures Procedure Name Priority Date/Time Associated Diagnosis Comments HEPATITIS C ANTIBODY Routine 02/10/2022 8:25 AM CDT Normal , incidental PAP WITH REFLEX TO HIGH RISK HPV Routine 01/17/2022 4:28 PM CDT Normal , incidental from Last 3 Months or Most Recently Relevant to Health Maintenance Results * Hepatitis C antibody (02/10/2022 8:25 AM CDT) Hep C Ab Nonreactive Nonreactive REECE AKERS (EDWAR) Comment: Interpretive Data Nonreactive: Antibodies to HCV not detected. Does NOT exclude the possibility of recent exposure to HCV. Equivocal: Equivocal for HCV antibodies. Supplemental molecular testing will be automatically performed to determine infection status in accordance with current CDC screening recommendations. Reactive: Positive for HCV antibodies. This may represent current or past HCV infection. Supplemental molecular testing will be automatically performed to determine current infection status in accordance with current CDC screening recommendations. Interpretive data was last revised on 2019. Testing performed by: [facility], [address] [place] [address]., [id number] Blood 02/10/2022 8:25 AM CDT 02/10/2022 2:10 PM CDT Shilpa Calhoun MD LAB MICROBIOLOGY - GENERAL ORDERABLES Final Result EMILEESMITH AKERS (BELVA) 1 [facility] Department [place] [address] * Pap with reflex to High Risk HPV (01/17/2022 4:28 PM CDT) CLINICAL INFORMATION: Tiffanie White Comment: LMP Tiffanie White Comment:11/15/2021 Previous Pap Tiffanie White Comment:NONE GIVEN Prev. Bx Tiffanie White Comment:NONE GIVEN SOURCE: Tiffanie White Comment:Cervix, Endocervix Pap, specimen adequacy Tiffanie White Comment: Satisfactory for evaluation. Endocervical/transformation zone component present. Partially obscuring inflammation HPV interp Tiffanie White Comment:Negative for intraep ithelial lesion or malignancy. Infection: Tiffanie White Comment: Shift in vaginal hansa suggestive of bacterial vaginosis. COMMENTS Tiffanie White Comment: This Pap test has been evaluated with computer assisted technology. Blasting Miner Madan Mayfield Comment: ABC, CT(ASCP) CT screening location: [place] [address] Administration YESICA [place] [id number] Comment JinniAlden White Comment: EXPLANATORY NOTE: The Pap is a screening test for cervical cancer. It is not a diagnostic test and is subject to false negative and false positive results. It is most reliable when a satisfactory sample, regularly obtained, is submitted with relevant clinical findings and history, and when the Pap result is evaluated along with historic and current clinical information. Thin prep 01/17/2022 4:28 PM CDT 01/18/2022 4:00 AM CDT Shilpa Calhoun MD LAB CYTOLOGY ORDERA BLES Final Result [facility] [address] Administration YESICA Zayas [phone] from Last 3 Months or Most Recently Relevant to Health Maintenance [facility] AETNA BETTER [facility] Advance Directives For more information, please contact: [phone] * Full Code (Latest Code Status on File) Date Activated Date Inactivated Comments 08/09/2022 4:36 PM 08/10/2022 10:03 PM * Full Code Date Activated Date Inactivated Comments 08/09/2022 5:29 AM 08/09/2022 4:36 PM Full CPR in case of cardiopulmonary arrest Care Teams Sr. Vendor Management Associate Relationship Specialty Start Date End Date [place] [address] PCP - General Family Medicine 03/24/20
--- OUTSIDE RECORDS SUMMARY | 2024-07-07 10:10 | XMS_ITS | Referral Summary ---
Author Organization [facility] [place] [address] [facility] lt Address [address] [place] [address] Care Team Providers Care Cath Lab Technologist Name Role Phone Steve Plascencia MD Primary Care Provider [phone] Allergies No known active allergies Medications ibuprofen [...] interest. Assessment & Plan (03/24/2020 3:04 PM DIRECTOR AGENCY & STRATEGIC PARTNERSHIPS): Not well controlled, patient is not ready to quit yet Discussed with patient various strategies for quitting as well as medical options Patient is not interested in starting any therapy today, will continue to address at future date Smoking likely contributes to recurrent pneumonia Body mass index (BMI) less than 19 03/24/2020 Assessment & Plan (03/24/2020 3:04 PM DIRECTOR AGENCY & STRATEGIC PARTNERSHIPS): Stable, no weight loss, no concern for eating disorder Resolved Problems Problem Noted Date Diagnosed Date Resolved Date H/O recurrent pneumonia 03/24/202007/29 Assessment & Plan (03/24/2020 3:04 PM DIRECTOR AGENCY & STRATEGIC PARTNERSHIPS): Patient reports 6 episodes of pneumonia in [...] Refused),04/30/2018(Deferred: Patient Refused) Pneumococcal Polysaccharide PPV23 03/24/2020 Social History Tobacco Use Types Packs/Day Years [...] often do you attend chur ch or sikhism services? Never 08/09/2022 Do you belong to any clubs o r organizations such as shinto groups, unions, fraternal or athletic groups, or [...] staff should administer the PHQ-9) 0 [facility]20[facility] Answer Date [...] place to sleep or slept in a detention (including now)? No 08/09/2022 [place] Depression Scale Answer Date Recorded [place] Depression Scale Total 8 05/30/2022 The thought of harming myself has occurred to me . Never 05/30/2022 Personal Safety Answer Date Recorded Getting School Help Needed Not on file 08/09 Comments No Sex and Gender Information Value Date Recorded Sex Assigned at Not on file Legal Sex Female 2:29 PM DIRECTOR AGENCY & STRATEGIC PARTNERSHIPS Gender Identity Not on file Sexual Orientation [...] 08/09/2022 5:30 AM CDT Plan of Treatment Not on file Procedures Procedure Name Priority Date/Time Associated Diagnosis Comments HEPATITIS C ANTIBODY Routine 02/10/2022 8:25 AM CDT Normal , incidental PAP WITH REFLEX TO HIGH RISK HPV Routine 01/17/2022 4:28 PM CDT Normal , incidental from Last 3 Months or Most Recently Relevant to Health Maintenance Results * Hepatitis C antibody (02/10/2022 8:25 AM CDT) Hep C Ab Nonreactive Nonreactive REECE AKERS (SHELBY) Comment: Interpretive Data Nonreactive: Antibodies to HCV [...] last revised on 2019. Testing performed by: [facility], [address] [place] [address]., [address] Blood 02/10/2022 8:25 AM CDT 02/10/2022 2:10 PM CDT Shilpa Calhoun MD LAB MICROBIOLOGY - GENERAL ORDERABLES Final Result REECE DELPHINE ([place]WAR) 1 [facility] Department [place] [address] * Pap with reflex to High Risk [...] has been evaluated with computer assisted technology. Castables Worker Madan Mayfield Comment: ABC, CT(ASCP) CT screening location: [place] [address] Administration YESICA [place] [id number] Comment Tiffanie White Comment: EXPLANATORY NOTE: The Pap is [...] 4:28 PM CDT 01/18/2022 4:00 AM CDT us Shilpa Calhoun MD LAB CYTOLOGY ORDERA BLES Final Result [facility] [address] Administration YESICA Zayas [phone] from Last 3 Months or Most Recently Relevant to Health Maintenance Insurance [facility] Advance Directives For more information, please contact: [phone] * Full Code (Latest Code Status on File) Date Activated Date Inactivated Comments 08/09/2022 4:36 PM 08/10/2022 10:03 PM * Full Code Date Activated Date Inactivated Comments 08/09/2022 5:29 AM 08/09/2022 4:36 PM Full CPR in case of cardiopulmonary arrest Care Teams Cath Lab Technologist Relationship Specialty Start Date End Date Steve Plascencia MD [address] [place] [address] PCP - General Family Medicine 03/24/20
--- NOTE | 2024-07-07 10:40 | ED.FEMALEGU ---
HPI - Female Genitourinary General Chief complaint: Urogenital-Female Stated complaint: Poss UTI Time Seen by Provider: 07/07/24 10:40 Source: patient, family, RN notes reviewed and old records reviewed Mode of arrival: ambulatory Limitations: no limitations History of Present Illness HPI Narrative: 34 year old female who presents to [facility] care with complaints of 1 week duration painful urination, urgency and frequency. Patient reports that she has not taken any AZO for her symptoms or any OTC medications . Patient reports some pelvic discomfort at times which is sharp rates pain at a 4/10. Patient has not taken any OTC medications for her symptoms. Patient reports no concern for STD exposure or any fevers, chills or sweats. MD elicited complaint: dysuria Pertinent past history: other (past UTI) Onset (ago): week(s) (1) Location of symptoms: pelvis Severity: moderate Severity scale (1-10): 4 Quality of pain: sharp Vaginal discharge: none Vaginal bleeding: none Urinary symptoms: Dysuria, Urgency and Frequency Treatment prior to arrival: none Related Data Allergies Allergy/AdvReac Type Severity Reaction Status Date / Time No Known Allergies Allergy Verified 07/07/24 09:56 Review of Systems Review of Systems: CONSTITUTIONAL: Denies fever, chills, or sweats. CARDIOVASCULAR: Denies chest pain, palpitations, or edema. RESPIRATORY: Denies cough or dyspnea. GASTROINTESTINAL: Denies abdominal pain, nausea, vomiting, or diarrhea, reports some pelvic discomfort sharp at times GENITOURINARY: Reports dysuria, frequency, urgency. Denies flank pain or hematuria. SKIN: Denies rash or itching. MUSCULOSKELETAL: Denies back pain or myalgia. Denies CVA tenderness NEUROLOGIC: Denies headache All systems reviewed & are unremarkable except as noted in HPI and below [facility] Past Medical History Medical History (Updated 07/09/24 @ 11:10 by Nina Che NP) Urinary tract infection Bronchitis Cough in adult Pneumonia Surgical History Surgical History [place] teeth extracted Social History Social History Smoking packs per day: 1 Smoking cigarettes per day: 20.0 Smoking status: Current every day smoker Alcohol intake: never Substance use: never Living arrangements: with family Gender identity (if verbalized by the patient): Female Comments At time of signature, agree with nursing past medical, surgical, social and family history. There is no relevant family history pertinent to the presenting complaint Exam Narrative: GENERAL: Well-appearing, well-nourished, and in no acute distress. HEAD: Normocephalic, atraumatic. NECK: Supple. no lymphadenopathy CHEST: Clear to auscultation. No respiratory distress. HEART: Regular rate and rhythm. No murmur heard. Normal peripheral pulses. ABDOMEN: Soft, nontender to palpation, reports some intermittent pelvic pain, nondistended, normal active bowel sounds. No CVA tenderness Positive for urinary burning, frequency and urgency EXTREMITIES: Normal range of motion. No edema. SKIN: Warm, dry, no rash. NEURO: No focal deficits. Alert and oriented x3. Course Course Emergency Course: Patient is aware of diagnosis, understands and agrees to treatment plan.? Anticipatory guidance given.? Patient agrees to follow-up as directed and is aware of reasons to seek care at the emergency department. Portions of this record may have been created with voice recognition software Level of Care: Express Care Visit Vital Signs Vital signs: Vital Signs Temperature 36.9 C 07/07/24 09:34 Pulse Rate 96 07/07/24 09:34 Respiratory Rate 16 07/07/24 09:34 Blood Pressure 116/78 07/07/24 09:34 Pulse Oximetry 100 07/07/24 09:34 Oxygen Delivery Room Air 07/07/24 09:34 Temperature 36.9 C 07/07/24 09:34 Pulse Rate 96 07/07/24 09:34 Respiratory Rate 16 07/07/24 09:34 Blood Pressure 116/78 07/07/24 09:34 Pulse Oximetry 100 07/07/24 09:34 Oxygen Delivery Room Air 07/07/24 09:34 MDM - Female Genitourinary MDM Narrative Medical decision making narrative: Exam findings and UA show no acute concerns or changes; patient is non-toxic appearing and is in no distress.? Patient is appropriate for outpatient treatment and follow-up. Differential Diagnosis Differential diagnosis: Likely urinary tract infection, cystitis and other (dysuria) Medical Records Attestation: I reviewed the patient's medical records. Lab Data Attestation: I reviewed the patient's lab results. Lab results narrative: urine dip see results: 2+ blood.2+ leukocytes, 2+ protein, specific gravity 1.030, yellow and cloudy Labs: Lab Results 07/07/24 Range/Units 09:44 POC Urine Color Yellow POC Urine Clarity Cloudy POC Urine pH 6.5 POC Ur Specif [place] 1.030 POC Urine Protein 2+ (Negative) POC Ur Glucose (UA) Negative (Negative) POC Urine Ketones Negative (Negative) POC Urine Blood 2+ (Negative) POC Urine Nitrite Negative (Negative) POC Urine Bilirubin Negative (Negative) POC Urine Urobilinogen 0.2 POC U Leukocyte Esteras 2+ (Negative) Critical Care Time Critical Care Time Critical Care Time: No Discharge Plan Discharge Clinical Impression: Urinary tract infection Qualifiers: Urinary tract infection type: site unspecified Hematuria presence: with hematuria Qualified Code(s): N39.0 - Urinary tract infection, site not specified Patient Disposition: Home, Self-Care Condition: Stable Instructions: Antibiotic Form, Urinary Tract Infection in Women (DC) Additional Instructions: Increase fluids especially cranberry juice and water Avoid caffeine and carbonated beverages Antibiotic as directed Tylenol/ibuprofen for pain or fever Follow-up with her primary care provider if further problems or concerns Recheck if you have fever over 101, nausea and vomiting. Antibiotic as prescribed complete all doses If your symptoms persist, change or worsen significantly before you can contact your personal physician then please, without delay, go to the emergency department for further evaluation. Follow-up with PCP in 7-10 days or sooner if needed Patient Language: Slovak Prescriptions: New amoxicillin-pot clavulanate 875-125 mg tablet 1 tablet PO Q12H Qty: 14 0RF Rx Instructions: Take all doses as prescribed recommend taking a probiotic or eating activia yogurt while on this medication Follow-up/Referrals: PHYSICIAN,COMPUTER SOFTWARE ENGINEER [Primary Care Provider] - Time of Disposition: 10:58 Quality Fernando Coma Scale Eyes: Open Verbal: Oriented and Alert Motor: Follows Commands [place] Coma Total Score: 15
[2024-07-07 10:46] LABS: EDUAAPPEAR Cloudy; EDUABILI Negative (Negative); EDUABLOOD 2+ (Negative); EDUACOLOR1 Yellow; EDUAGLUCOSE Negative (Negative); EDUAKETONE Negative (Negative); EDUALEUKO 2+ (Negative); EDUANITRATE Negative (Negative); EDUAPH 6.5; EDUAPROTEIN 2+ (Negative); EDUAUROBILI 0.2
== END 2024-07-07 11:03 | disposition home or self-care (01) ==
PROVIDERS: Emergency Provider Registered Nurse
DX: N39.0 Urinary tract infection, site not specified (principal); B95.7 Other staphylococcus as the cause of diseases classified elsewhere; F17.210 Nicotine dependence, cigarettes, uncomplicated
CPT/HCPCS: 81003; 87086; 99213; G0463